=== PATIENT | male | born 1965 | race Caucasian/White ===

== ENCOUNTER 2019-01-19 15:48 | Inpatient (IN) | payer MEDICARE, OTHER, MEDICAID ==
[2019-01-19] MEDS ORDERED: Albuterol/Ipratropium 3.0-0.5 MG/3 ML Neb Soln NEB ONE (15:53)
[2019-01-19] MEDS ORDERED: Sodium Chloride 0.9% 1,000 ML IV ONE (15:54)
[2019-01-19] MEDS ORDERED: Albuterol/Ipratropium 3.0-0.5 MG/3 ML Neb Soln ONE (15:55)
--- NOTE | 2019-01-19 16:12 | EDM.PDOC ---
ED HPI GENERAL MEDICAL PROBLEM - General Chief Complaint: Respiratory Problem Stated Complaint: PATIENT HAS INFLUENZA Time Seen by Provider: 01/19/19 16:00 Source of Information: Reports: Patient History Limitations: Reports: No Limitations - History of Present Illness INITIAL COMMENTS - FREE TEXT/NARRATIVE: This 54 yo male patient reports to the ED with increased shortness of breath. The patient reports he was diagnosed with influenza A, but has been experiencing increased shortness of breath since that time. The patient reports he is currently taking Tamiflu, Zofran and cough medication, but he has continued to have problems. The patient reports he does have a nebulizer and was taking treatments yesterday, but did not take any treatments today. Duration: Day(s):, Constant, Getting Worse Location: Reports: Chest Quality: Reports: Other Severity: Moderate Improves with: Reports: None Worsens with: Reports: None Context: Reports: Other Associated Symptoms: Reports: No Other Symptoms - Related Data Allergies Allergy/AdvReac Type Severity Reaction Status Date / Time alcohol Allergy UNKNOWN Verified 01/19/19 16:10 codeine Allergy UNKNOWN Verified 01/19/19 16:10 lamotrigine [From Lamictal] Allergy UNKNOWN Verified 01/19/19 16:10 oxcarbazepine Allergy UNKNOWEN Verified 01/19/19 16:10 Penicillins Allergy UNKNOWN Verified 01/19/19 16:10 Home Meds: Home Meds ALPRAZolam [Alprazolam] 1 mg PO BID PRN 08/25/14 [History] Cholecalciferol (Vitamin D3) [D-2000] 2,000 unit PO DAILY 08/25/14 [History] Tiotropium [Spiriva Handihaler] 18 mcg INH DAILY 08/25/14 [History] Albuterol [Proventil Neb Soln] 3 ml INH BID 12/02/17 [History] Aspirin [Adult Low Dose Aspirin EC] 81 mg PO DAILY 12/02/17 [History] FLUoxetine HCl [Fluoxetine HCl] 60 mg PO DAILY 12/02/17 [History] Fluticasone/Salmeterol [Advair Hfa 230-21 Mcg Inhaler] 2 puff INH BID 12/02/17 [ History] Folic Acid 1 mg PO DAILY 12/02/17 [History] Isosorbide Mononitrate [Imdur] 30 mg PO DAILY 12/02/17 [History] Methocarbamol [Robaxin] 750 mg PO QID 12/02/17 [History] Omeprazole 20 mg PO DAILY 12/02/17 [History] Umeclidinium [place] [Incruse Ellipta] 1 puff INH DAILY 12/02/17 [History] amLODIPine/atorvaSTATin [Amlodipine-Atorvast 10-10 mg] 1 tab PO DAILY 12/02/17 [ History] Social & Family History - Tobacco Use Smoking Status *Q: Current Every Day Smoker Years of Tobacco use: 30 Packs/Tins Daily: 0.5 - Caffeine Use Caffeine Use: Reports: Soda - Recreational Drug Use Recreational Drug Use: No ED ROS GENERAL - Review of Systems Review Of Systems: ROS reveals no pertinent complaints other than HPI. ED EXAM, GENERAL - Physical Exam Exam: See Below Exam Limited By: No Limitations General Appearance: Alert, WD/WN, Moderate Distress Eye Exam: Bilateral Eye: EOMI, Normal Inspection, PERRL Ears: Normal External Exam, Normal Canal, Hearing Grossly Normal, Normal TMs Nose: Normal Inspection, Normal Mucosa, No Blood Throat/Mouth: Normal Inspection, Normal Lips, Normal Teeth, Normal Gums, Normal Oropharynx, Normal Voice, No Airway Compromise Head: Atraumatic, Normocephalic Neck: Normal Inspection, Supple, Non-Tender, Full Range of Motion Respiratory/Chest: Decreased Breath Sounds, Rhonchi Cardiovascular: Normal Peripheral Pulses, Regular Rate, Rhythm, No Edema, No Gallop, No JVD, No Murmur, No Rub GI/Abdominal: Normal Bowel Sounds, Soft, Non-Tender, No Organomegaly, No Distention, No Abnormal Bruit, No Mass (Male) Exam: Deferred Rectal (Males) Exam: Deferred Back Exam: Normal Inspection, Full Range of Motion, NT Extremities: Normal Inspection, Normal Range of Motion, Non-Tender, Normal Capillary Refill, No Pedal Edema Neurological: Alert, Oriented, CN II-XII Intact, Normal Cognition, Normal Gait, Normal Reflexes, No Motor/Sensory Deficits Psychiatric: Normal Affect, Normal Mood Skin Exam: Warm, Dry, Intact, Normal Color, No Rash Lymphatic: No Adenopathy Course - Vital Signs Last Recorded V/S: Last Vital Signs Temp 37.1 C 01/19/19 15:52 Pulse 87 01/19/19 15:52 Resp 28 H 01/19/19 15:52 BP 153/97 H 01/19/19 15:52 Pulse Ox 90 L 01/19/19 15:53 - Orders/Labs/Meds Orders: Active Orders 24 hr Category Date Time Status RT Aerosol Therapy [RC] ASDIRECTED Care 01/19/19 15:53 Ordered CULTURE BLOOD [BC] Stat Lab 01/19/19 15:54 Ordered CULTURE BLOOD [BC] Stat Lab 01/19/19 15:54 Ordered Azithromycin [Zithromax] 500 mg Med 01/19/19 16:52 Ordered Sodium Chloride 0.9% [Normal Saline] 250 ml IV ONETIME Sodium Chloride 0.9% [Normal Saline] 1,000 ml Med 01/19/19 15:54 Ordered IV .BOLUS Blood Culture x2 Reflex Set [OM.PC] Stat Oth 01/19/19 15:54 Ordered Medication Orders Sodium Chloride (Normal Saline) 1,000 mls @ 250 mls/hr IV .BOLUS ONE Stop: 01/19/19 19:53 Last Admin: 01/19/19 16:06 Dose: 250 mls/hr Azithromycin 500 mg/ Sodium (Chloride) 250 mls @ 250 mls/hr IV ONETIME ONE Stop: 01/19/19 17:51 Labs: Laboratory Tests 01/19/19 01/19/19 01/19/19 Range/Units 16:04 16:04 16:04 WBC 8.9 (5.0-10.0) 10^3/uL RBC 5.03 (4.6-6.2) 10^6/uL Hgb 15.2 (14.0-18.0) g/dL Hct 44.1 (40.0-54.0) % MCV 87.7 (80-100) fL MCH 30.2 (27.0-34.0) pg MCHC 34.5 (33.0-35.0) g/dL Plt Count 142 L (150-450) 10^3/uL Neut % (Auto) 75.9 H (42.2-75.2) % Lymph % (Auto) 14.8 L (20.5-50.1) % [place] % (Auto) 8.9 H (2-8) % Eos % (Auto) 0.2 L (1.0-3.0) % Baso % (Auto) 0.2 (0.0-1.0) % Add Manual Diff Yes Neutrophils % (Manual) 61 (42-75) % Lymphocytes % (Manual) 21 (20-50) % Monocytes % (Manual) 13 H (2-8) % Basophils % (Manual) 1 Metamyelocytes % 2 Myelocytes % 2 Atypical Lymphocytes Few Vacuolated Monocytes Few Platelet Estimate Decreased Sodium 139 (135-145) mmol/L Potassium 3.4 L (3.6-5.0) mmol/L Chloride 104 (101-111) mmol/L Carbon Dioxide 23.0 (21.0-31.0) mmol/L Anion Gap 15.4 BUN 14 (7-18) mg/dL Creatinine 0.7 (0.6-1.3) mg/dL Est Cr Clr Drug Dosing 123.12 mL/min Estimated GFR (MDRD) > 60 BUN/Creatinine Ratio 20.00 Glucose 101 (74-105) mg/dL Lactic Acid 1.1 (0.5-2.2) mmol/L Calcium 8.7 (8.4-10.2) mg/dl Total Bilirubin 0.9 (0.2-1.0) mg/dL AST 87 H (10-42) IU/L ALT 102 H (10-60) IU/L Alkaline Phosphatase 136 H (42-121) IU/L Total Protein 7.0 (6.7-8.2) g/dl Albumin 3.5 (3.2-5.5) g/dl Globulin 3.5 Albumin/Globulin Ratio 1.00 Meds: Medications Generic Name Dose Route Start Last Admin Trade Name Tricia PRN Reason Stop Dose Admin Sodium Chloride 1,000 mls @ 250 mls/hr 01/19/19 15:54 01/19/19 16:06 Normal Saline IV 01/19/19 19:53 250 mls/hr .BOLUS ONE Administration Azithromycin 500 mg/ Sodium 250 mls @ 250 mls/hr 01/19/19 16:52 Chloride IV 01/19/19 17:51 ONETIME ONE Discontinued Medications Generic Name Dose Route Start Last Admin Trade Name Freq PRN Reason Stop Dose Admin Albuterol/Ipratropium 3 ml 01/19/19 15:53 01/19/19 15:59 Duoneb 3.0-0.5 Mg/3 Ml NEB 01/19/19 15:54 3 ml ONETIME ONE Administration Albuterol/Ipratropium Confirm 01/19/19 15:55 01/19/19 15:59 Duoneb 3.0-0.5 Mg/3 Ml Administered 01/19/19 15:56 Not Given Dose 3 ml .ROUTE .STK-MED ONE Methylprednisolone Sodium Succinate 125 mg 01/19/19 16:46 01/19/19 16:54 Solu-Medrol IVPUSH 01/19/19 16:47 125 mg ONETIME ONE Administration Departure - Departure Time of Disposition: 16:54 Disposition: Admitted As Inpatient 65 Condition: Poor Clinical Impression: COPD exacerbation, Hypoxemia - Discharge Information *PRESCRIPTION DRUG MONITORING PROGRAM REVIEWED*: Not Applicable *COPY OF PRESCRIPTION DRUG MONITORING REPORT IN PATIENT SHAR: Not Applicable Care Plan Goals: Discussed the examination, lab and x-ray results with Dr. Mcallister. Dr. Mcallister accepted the patient for continued evaluation and management as an inpatient at [facility]. The patient was given a Duoneb treatment, IV SoluMedrol and IV Azithromycin prior to admission. - My Orders Last 24 Hours: My Active Orders 01/19/19 15:53 RT Aerosol Therapy [RC] ASDIRECTED 01/19/19 15:54 CULTURE BLOOD [BC] Stat CULTURE BLOOD [BC] Stat Sodium Chloride 0.9% [Normal Saline] 1,000 ml IV .BOLUS Blood Culture x2 Reflex Set [OM.PC] Stat 01/19/19 16:52 Azithromycin [Zithromax] 500 mg Sodium Chloride 0.9% [Normal Saline] 250 ml IV ONETIME - Assessment/Plan Last 24 Hours: My Active Orders 01/19/19 15:53 RT Aerosol Therapy [RC] ASDIRECTED 01/19/19 15:54 CULTURE BLOOD [BC] Stat CULTURE BLOOD [BC] Stat Sodium Chloride 0.9% [Normal Saline] 1,000 ml IV .BOLUS Blood Culture x2 Reflex Set [OM.PC] Stat 01/19/19 16:52 Azithromycin [Zithromax] 500 mg Sodium Chloride 0.9% [Normal Saline] 250 ml IV ONETIME
[2019-01-19 16:34] LABS: ANION GAP 15.4; CHLORIDE,CL 104 mmol/L (101-111); SODIUM,NA 139 mmol/L (135-145)
--- NOTE | 2019-01-19 16:45 | CR ---
Clinical history: 54-year-old male complaining of shortness of breath. Interpretation: Prominence of the ascending aorta (ectasia) with associated widened mediastinum unchanged since 12 September 2017. Normal cardiac silhouette without cephalization of vascular flow, signs of alveolar edema or dependent pleural effusion. No new lung mass, hilar lymphadenopathy or focal lobar pneumonia. No atelectasis/collapse. No pneumothorax. Chronic air trapping. Asthmatic? CONCLUSION: No acute new cardiopulmonary since August 2010 films.
[2019-01-19] MEDS ORDERED: methylPREDNISolone Sodium Succinate 125 MG/2 ML SDV IVPUSH ONE (16:46)
[2019-01-19] MEDS ORDERED: Azithromycin 500 MG in Sodium Chloride 0.9% 250 ML IV ONE (16:52)
[2019-01-19] MEDS ORDERED: Docusate Sodium 100 MG Cap PO PRN (17:39)
[2019-01-19] MEDS ORDERED: Magnesium Hydroxide 400 MG/5 ML Susp 30 ML Cup PO PRN (17:39)
--- NOTE | 2019-01-19 18:02 | PCM.HP ---
H&P History of Present Illness - General Date of Service: 01/19/19 Admit Problem/Dx: Admission Diagnosis/Problem Admission Diagnosis/Problem Acute respiratory failure with hypercapnia Source of Information: Patient History Limitations: Reports: No Limitations - History of Present Illness Initial Comments - Free Text/Narative: Seth is 54 y/o M with PMH of chronic tobacco abuse, COPD, HTN, HLD. He presented to the ER with worsening SOB. He said he was diagnosed with influenza A on Friday by his PCP. He was started on Tamiflu and dexamethasone. He completed Tamiflu today but do not feel well. He reports increasing SOB. SOB is worse with exertion and is associated with with wheezing. He has used he nebulizers at home with no relieve. He notes cough productive of minimal sputum. He has not had fever or chills. No chest pain, palpitations. In the ER he was hypoxic on RA, saturation was in the 70s. He improved to 92% with 3 L of oxygen via NC. Cxr was negative for infiltrate. Patient is being admitted to the hospital for further management. Onset of Symptoms: Reports: Gradual Duration of Symptoms: Reports: Day(s): Location: Reports: Chest Quality: Reports: Other (SOB) Severity: Severe Improves with: Reports: None Worsens with: Reports: None Associated Symptoms: Reports: No Other Symptoms - Related Data Allergies/Adverse Reactions: Allergies Allergy/AdvReac Type Severity Reaction Status Date / Time alcohol Allergy UNKNOWN Verified 01/19/19 16:10 codeine Allergy UNKNOWN Verified 01/19/19 16:10 fentanyl Allergy Cannot Verified 01/19/19 17:54 Remember lamotrigine [From Lamictal] Allergy UNKNOWN Verified 01/19/19 16:10 oxcarbazepine Allergy UNKNOWEN Verified 01/19/19 16:10 Penicillins Allergy UNKNOWN Verified 01/19/19 16:10 Home Medications: Home Meds ALPRAZolam [Alprazolam] 1 mg PO BID PRN 08/25/14 [History] Cholecalciferol (Vitamin D3) [D-2000] 2,000 unit PO DAILY 08/25/14 [History] Albuterol [Proventil Neb Soln] 3 ml INH BID 12/02/17 [History] Aspirin [Adult Low Dose Aspirin EC] 81 mg PO DAILY 12/02/17 [History] FLUoxetine HCl [Fluoxetine HCl] 60 mg PO DAILY 12/02/17 [History] Fluticasone/Salmeterol [Advair Hfa 230-21 Mcg Inhaler] 2 puff INH BID 12/02/17 [ History] Folic Acid 1 mg PO DAILY 12/02/17 [History] Omeprazole 20 mg PO DAILY 12/02/17 [History] Umeclidinium [place] [Incruse Ellipta] 1 puff INH DAILY 12/02/17 [History] amLODIPine/atorvaSTATin [Amlodipine-Atorvast 10-10 mg] 1 tab PO DAILY 12/02/17 [ History] ALPRAZolam [Alprazolam] 1 mg PO ASDIRECTED PRN 01/19/19 [History] Oseltamivir [Tamiflu] 75 mg PO BID 01/19/19 [History] atorvaSTATin [Lipitor] 10 mg PO BEDTIME 01/19/19 [History] methylPREDNISolone [Medrol] 4 mg PO ASDIRECTED 01/19/19 [History] Past Medical History HEENT History: Reports: Impaired Vision Respiratory History: Reports: COPD - Past Surgical History Musculoskeletal Surgical History: Reports: Shoulder Replacement, Other (See Below) Other Musculoskeletal Surgeries/Procedures:: back surgery Social & Family History - Tobacco Use Smoking Status *Q: Current Every Day Smoker Years of Tobacco use: 35 Packs/Tins Daily: 1 Tobacco Use Comment: Patient states he wants to quit. Second Hand Smoke Exposure: Yes - Caffeine Use Caffeine Use: Reports: Coffee, Soda - Alcohol Use Days Per Week of Alcohol Use: 2 Number of Drinks Per Day: 2 Total Drinks Per Week: 4 - Recreational Drug Use Recreational Drug Use: No H&P Review of Systems - Review of Systems: Review Of Systems: See Below General: Reports: No Symptoms HEENT: Reports: No Symptoms Pulmonary: Reports: Shortness of Breath, Wheezing, Pleuritic Chest Pain, Cough, Sputum Cardiovascular: Reports: No Symptoms Gastrointestinal: Reports: No Symptoms Genitourinary: Reports: No Symptoms Musculoskeletal: Reports: No Symptoms Skin: Reports: No Symptoms Psychiatric: Reports: No Symptoms Neurological: Reports: No Symptoms Hematologic/Lymphatic: Reports: No Symptoms Immunologic: Reports: No Symptoms Exam - Exam Exam: See Below - Vital Signs Vital Signs: Last Vital Signs Temp 98.8 F 01/19/19 17:34 Pulse 78 01/19/19 17:34 Resp 28 H 01/19/19 15:52 BP 139/90 01/19/19 17:34 Pulse Ox 91 L 01/19/19 17:34 Weight: 212 lb 6.4 oz - Exam Quality Assessment: Supplemental Oxygen, DVT Prophylaxis General: Alert, Oriented, 4 HEENT: PERRLA, Hearing Intact, Mucosa Moist & [place], Nares Patent, Normal Nasal Septum, Posterior Pharynx Clear, Conjunctiva Clear, EOMI, EACs Clear, TMs Clear Neck: Supple, Trachea Midline, 2 Lungs: Clear to Auscultation, Normal Respiratory Effort Cardiovascular: Regular Rate, Regular Rhythm GI/Abdominal Exam: Normal Bowel Sounds, Soft, Non-Tender, No Organomegaly, No Distention, No Abnormal Bruit, No Mass, Pelvis Stable (Male) Exam: No Hernia, Normal Inspection, Normal Prostate, Circumcised Rectal (Males) Exam: Normal Exam, Normal Rectal Tone, Prostate Normal Back Exam: Normal Inspection, Full Range of Motion, NT Extremities: Normal Inspection, Normal Range of Motion, Non-Tender, No Pedal Edema, Normal Capillary Refill Skin: Warm, Dry, Intact Neurological: Cranial Nerves Intact, Reflexes Equal Bilateral Neuro Extensive - Mental Status: Alert, Oriented x3, Normal Mood/Affect, Normal Cognition Neuro Extensive - Motor, Sensory, Reflexes: CN II-XII Intact, Normal Gait, Normal Reflexes Psychiatric: Alert, Normal Affect, Normal Mood - Patient Data Lab Results Last 24 hrs: Laboratory Results - last 24 hr 01/19/19 01/19/19 01/19/19 Range/Units 16:04 16:04 16:04 WBC 8.9 (5.0-10.0) 10^3/uL RBC 5.03 (4.6-6.2) 10^6/uL Hgb 15.2 (14.0-18.0) g/dL Hct 44.1 (40.0-54.0) % MCV 87.7 (80-100) fL MCH 30.2 (27.0-34.0) pg MCHC 34.5 (33.0-35.0) g/dL Plt Count 142 L (150-450) 10^3/uL Neut % (Auto) 75.9 H (42.2-75.2) % Lymph % (Auto) 14.8 L (20.5-50.1) % [place] % (Auto) 8.9 H (2-8) % Eos % (Auto) 0.2 L (1.0-3.0) % Baso % (Auto) 0.2 (0.0-1.0) % Add Manual Diff Yes Neutrophils % (Manual) 61 (42-75) % Lymphocytes % (Manual) 21 (20-50) % Monocytes % (Manual) 13 H (2-8) % Basophils % (Manual) 1 Metamyelocytes % 2 Myelocytes % 2 Atypical Lymphocytes Few Vacuolated Monocytes Few Platelet Estimate Decreased Sodium 139 (135-145) mmol/L Potassium 3.4 L (3.6-5.0) mmol/L Chloride 104 (101-111) mmol/L Carbon Dioxide 23.0 (21.0-31.0) mmol/L Anion Gap 15.4 BUN 14 (7-18) mg/dL Creatinine 0.7 (0.6-1.3) mg/dL Est Cr Clr Drug Dosing 123.12 mL/min Estimated GFR (MDRD) > 60 BUN/Creatinine Ratio 20.00 Glucose 101 (74-105) mg/dL Lactic Acid 1.1 (0.5-2.2) mmol/L Calcium 8.7 (8.4-10.2) mg/dl Total Bilirubin 0.9 (0.2-1.0) mg/dL AST 87 H (10-42) IU/L ALT 102 H (10-60) IU/L Alkaline Phosphatase 136 H (42-121) IU/L Total Protein 7.0 (6.7-8.2) g/dl Albumin 3.5 (3.2-5.5) g/dl Globulin 3.5 Albumin/Globulin Ratio 1.00 Result Diagrams: 01/19/19 16:04 01/19/19 16:04 - Problem List (1) Influenza A SNOMED Code(s): 080871301 ICD Code: J10.1 - FLU DUE TO OTH IDENT INFLUENZA VIRUS W OTH RESP MANIFEST Status: Acute Current Visit: Yes (2) HTN (hypertension) SNOMED Code(s): 49857276 ICD Code: I10 - ESSENTIAL (PRIMARY) HYPERTENSION Status: Acute Current Visit: Yes (3) Respiratory failure with hypoxia SNOMED Code(s): 07046933283725309 ICD Code: J96.91 - RESPIRATORY FAILURE, UNSPECIFIED WITH HYPOXIA Status: Acute Current Visit: Yes (4) COPD exacerbation SNOMED Code(s): 523925354 ICD Code: J44.1 - CHRONIC OBSTRUCTIVE PULMONARY DISEASE W (ACUTE) EXACERBATION Status: Acute Current Visit: No (5) Hypoxemia SNOMED Code(s): 265485024 ICD Code: R09.02 - HYPOXEMIA Status: Acute Current Visit: No Problem List Initiated/Reviewed/Updated: Yes Orders Last 24hrs: Active Orders 24 hr Category Date Time Status Patient Status [ADT] Routine ADT 01/19/19 17:39 Ordered Ambulate [RC] ASDIRECTED Care 01/19/19 17:39 Ordered Antiembolic Devices [RC] .Routine Care 01/19/19 17:43 Ordered Intake and Output [RC] QSHIFT Care 01/19/19 17:41 Ordered Notify Provider Vital Signs [RC] ASDIRECTED Care 01/19/19 17:41 Ordered Oxygen Therapy [RC] CONTINUOUS Care 01/19/19 17:41 Ordered Pulse Oximetry [RC] PRN Care 01/19/19 17:41 Ordered RT Aerosol Therapy [RC] ASDIRECTED Care 01/19/19 15:53 Active RT Aerosol Therapy [RC] ASDIRECTED Care 01/19/19 17:47 Ordered RT Aerosol Therapy [RC] ASDIRECTED Care 01/19/19 17:53 Ordered VTE/DVT Education [RC] PER UNIT ROUTINE Care 01/19/19 17:43 Ordered Vital Signs [RC] Q4H Care 01/19/19 17:39 Ordered Regular Diet [DIET] Diet 01/19/19 Dinner Ordered CULTURE BLOOD [BC] Stat Lab 01/19/19 16:04 Received CULTURE BLOOD [BC] Stat Lab 01/19/19 16:08 Received ALPRAZolam [Alprazolam] Med 01/19/19 17:44 Ordered 1 mg PO BID PRN Acetaminophen [Tylenol] Med 01/19/19 17:39 Ordered 650 mg PO Q4H PRN Albuterol [Proventil Neb Soln] Med 01/19/19 21:00 Ordered 2.5 mg INH BID Albuterol/Ipratropium [DuoNeb 3.0-0.5 MG/3 ML] Med 01/19/19 19:00 Ordered 3 ml NEB Q4HRRT Albuterol/Ipratropium [DuoNeb 3.0-0.5 MG/3 ML] Med 01/19/19 19:00 Ordered 3 ml NEB Q4HRRT Aspirin [Halfprin] Med 01/20/19 09:00 Ordered 81 mg PO DAILY Azithromycin [Zithromax] 500 mg Med 01/19/19 18:00 Ordered Sodium Chloride 0.9% [Normal Saline] 250 ml IV Q24H Cholecalciferol (Vitamin D3) [D3-2000] Med 01/20/19 09:00 Ordered 2,000 unit PO DAILY Docusate Sodium [Colace] Med 01/19/19 17:39 Ordered 100 mg PO DAILY PRN FLUoxetine HCl [Fluoxetine HCl] Med 01/20/19 09:00 Ordered 60 mg PO DAILY Fluticasone/Salmeterol [Advair Hfa 230-21 Mcg Inhaler] Med 01/19/19 21:00 Ordered 2 puff INH BID Folic Acid Med 01/20/19 09:00 Ordered 1 mg PO DAILY Heparin Sodium Med 01/19/19 17:45 Ordered 5,000 units SUBCUT Q12H Isosorbide Mononitrate [Imdur] Med 01/20/19 09:00 Ordered 30 mg PO DAILY Magnesium Hydroxide [Milk of Magnesia] Med 01/19/19 17:39 Ordered 30 ml PO BID PRN Methocarbamol Med 01/19/19 21:00 Ordered 750 mg PO QID Nicotine [Habitrol] Med 01/19/19 18:00 Ordered 14 mg TRDERM DAILY Omeprazole Med 01/20/19 09:00 Ordered 20 mg PO DAILY Remove Patch Med 01/20/19 09:00 Active 1 ea TRDERM DAILY Sodium Chloride 0.9% [Normal Saline] 1,000 ml Med 01/19/19 15:54 Active IV .BOLUS Tiotropium [Spiriva HandiHaler] Med 01/20/19 09:00 Ordered 18 mcg INH DAILY Umeclidinium [place] [Incruse Ellipta] Med 01/20/19 09:00 Ordered 1 puff INH DAILY amLODIPine/atorvaSTATin [Amlodipine-Atorvast 10-10 mg] Med 01/20/19 09:00 Ordered 1 tab PO DAILY methylPREDNISolone Sod Succ [Solu-MEDROL] Med 01/19/19 18:00 Ordered 40 mg IVPUSH Q8H Blood Culture x2 Reflex Set [OM.PC] Stat Oth 01/19/19 15:54 Ordered DVT/VTE Prophylaxis Reflex [OM.PC] Routine Oth 01/19/19 17:39 Ordered Resuscitation Status Routine Resus Stat 01/19/19 17:39 Ordered Medication Orders Acetaminophen (Tylenol) 650 mg PO Q4H PRN PRN Reason: Pain (mild 1-3 )/fever Albuterol (Proventil Neb Soln) 2.5 mg INH BIDRT [facility] Alprazolam (Xanax) 1 mg PO BID PRN PRN Reason: ANXIETY Amlodipine Besylate (Norvasc) 10 mg PO DAILY [facility] Aspirin (Halfprin) 81 mg PO DAILY [facility] Cholecalciferol (Vitamin D3) 2,000 units PO DAILY [facility] Docusate Sodium (Colace) 100 mg PO DAILY PRN PRN Reason: Constipation Fluoxetine HCl (Prozac) 60 mg PO DAILY [facility] Folic Acid (Folic Acid) 1 mg PO DAILY [facility] Heparin Sodium (Porcine) (Heparin Sodium) 5,000 units SUBCUT Q12H [facility] Sodium Chloride (Normal Saline) 1,000 mls @ 250 mls/hr IV .BOLUS ONE Stop: 01/19/19 19:53 Last Admin: 01/19/19 16:06 Dose: 250 mls/hr Isosorbide Mononitrate (Imdur) 30 mg PO DAILY [facility] Magnesium Hydroxide (Milk Of Magnesia) 30 ml PO BID PRN PRN Reason: Constipation Miscellaneous Information (Remove Patch) 1 ea TRDERM DAILY [facility] Nicotine (Habitrol) 14 mg TRDERM DAILY [facility] Non-Formulary Medication (Fluticasone/Salmeterol [Advair Hfa 230-21 Mcg Inhaler] ) 2 puff INH BID [facility] Non-Formulary Medication (Methocarbamol) 750 mg PO QID [facility] Non-Formulary Medication (Umeclidinium [place] [Incruse Ellipta]) 1 puff INH DAILY [facility] Omeprazole (Omeprazole) 20 mg PO ACBREAKFAST [facility] Tiotropium [place] (Spiriva Handihaler) 18 mcg INH DAILY [facility] Assessment/Plan Comment:: Acute hypoxic respiratory failure requiring supplemental oxygen This is due to COPD exacerbation Admit to general medical floors Monitor vitals Continue supplemental oxygen and wean off as needed RT to assess and treat COPD exacerbation due to Influenza A Duo-Nebs q4h Solu-medrol 40 mg q8h Continue Fluticasone /Salmeterol Azithromycin Completed Tamiflu today Incentive spirometry and Flutter valve HTN BP at goal Continue home medication Monitor BP closely HLD Continue home medication Anxiety/Depression Continue Fluoxetine Cardiac diet Full code
[2019-01-19] MEDS: Albuterol 0.083% 2.5 MG/3 ML Neb Soln INH SCH (18:39)
[2019-01-19] MEDS: Nicotine 14 MG/24 Hr Patch TRDERM SCH (18:56)
[2019-01-19] MEDS: Formoterol/Mometasone 200-5 MCG 8.8 GM Inhaler IH SCH (18:56)
[2019-01-19] MEDS: Potassium Chloride 10 MEQ Tab.ER PO SCH (18:57)
[2019-01-19] MEDS: Albuterol/Ipratropium 3.0-0.5 MG/3 ML Neb Soln NEB SCH ×2 (19:00→23:37)
[2019-01-19] MEDS ORDERED: Albuterol/Ipratropium 3.0-0.5 MG/3 ML Neb Soln NEB SCH (19:00)
[2019-01-19] MEDS ORDERED: METHOCARBAMOL 750 MG PO SCH (21:00)
[2019-01-19] MEDS: Omeprazole 20 MG Cap.CR PO SCH (21:45)
[2019-01-19] MEDS: Heparin Sodium 5,000 Units/ML Vial SUBCUT SCH (21:45)
[2019-01-19] MEDS: FLUoxetine 10 MG Cap PO SCH ×2 (21:45→21:48)
[2019-01-19] MEDS: methylPREDNISolone Sodium Succinate 40 MG/1 ML SDV IVPUSH SCH (21:46)
[2019-01-19] MEDS: ALPRAZolam 0.5 MG Tab PO PRN (21:46)
[2019-01-20] MEDS: Albuterol/Ipratropium 3.0-0.5 MG/3 ML Neb Soln NEB SCH ×6 (03:41→22:13)
[2019-01-20 06:19] LABS: ANION GAP 15.8; CHLORIDE,CL 100 mmol/L (101-111); SODIUM,NA 136 mmol/L (135-145)
[2019-01-20] MEDS: methylPREDNISolone Sodium Succinate 40 MG/1 ML SDV IVPUSH SCH ×3 (06:23→22:13)
[2019-01-20] MEDS: Acetaminophen 325 MG Tab PO PRN ×2 (07:53→19:33)
[2019-01-20] MEDS: Formoterol/Mometasone 200-5 MCG 8.8 GM Inhaler IH SCH ×2 (07:54→18:01)
[2019-01-20] MEDS: Albuterol 0.083% 2.5 MG/3 ML Neb Soln INH SCH (08:19)
[2019-01-20] MEDS: Potassium Chloride 10 MEQ Tab.ER PO SCH ×2 (08:20→18:01)
[2019-01-20] MEDS: Folic Acid 1 MG Tab PO SCH (08:20)
[2019-01-20] MEDS: amLODIPine 5 MG Tab PO SCH (08:21)
[2019-01-20] MEDS: atorvaSTATin 10 MG Tab PO SCH (08:21)
[2019-01-20] MEDS: Aspirin 81 MG Tab.EC PO SCH (08:21)
[2019-01-20] MEDS: Cholecalciferol (Vitamin D3) 1,000 Unit Tab PO SCH (08:22)
[2019-01-20] MEDS: FLUoxetine 10 MG Cap PO SCH (08:22)
[2019-01-20] MEDS: Heparin Sodium 5,000 Units/ML Vial SUBCUT SCH ×3 (08:23→20:46)
[2019-01-20] MEDS: ALPRAZolam 0.5 MG Tab PO PRN ×2 (08:23→21:02)
[2019-01-20] MEDS: Nicotine 14 MG/24 Hr Patch TRDERM SCH (08:24)
[2019-01-20] MEDS ORDERED: Isosorbide Mononitrate 30 MG Tab.ER PO SCH (09:00)
[2019-01-20] MEDS ORDERED: Non-Formulary Medication 1 Each (Umeclidinium Bromide [Incruse Ellipta] 1 PUFF) INH SCH (09:00)
[2019-01-20] MEDS ORDERED: Tiotropium Inhaler 18 MCG Inhalation Powder Cap Kit of 5 INH SCH (09:00)
[2019-01-20] MEDS ORDERED: Albuterol 0.083% 2.5 MG/3 ML Neb Soln INH PRN (10:04)
--- NOTE | 2019-01-20 10:27 | PCM.PN ---
- General Info Date of Service: 01/20/19 Subjective Update: still coughing Still SOB Still needing supplemental oxygen - Review of Systems General: Reports: Weakness Pulmonary: Reports: Shortness of Breath Cardiovascular: Reports: Dyspnea on Exertion Gastrointestinal: Reports: No Symptoms - Patient Data Vitals - Most Recent: Last Vital Signs Temp 37.2 C 01/20/19 07:00 Pulse 94 01/20/19 07:16 Resp 14 01/20/19 07:00 BP 136/92 H 01/20/19 08:21 Pulse Ox 94 L 01/20/19 07:00 Weight - Most Recent: 96.343 kg I&O - Last 24 Hours: Intake & Output 01/19/19 01/20/19 01/20/19 22:59 06:59 14:59 Intake Total 1255 350 Output Total 800 Balance 1255 -450 Lab Results Last 24 Hours: Laboratory Results - last 24 hr 01/19/19 01/19/19 01/19/19 Range/Units 16:04 16:04 16:04 WBC 8.9 (5.0-10.0) 10^3/uL RBC 5.03 (4.6-6.2) 10^6/uL Hgb 15.2 (14.0-18.0) g/dL Hct 44.1 (40.0-54.0) % MCV 87.7 (80-100) fL MCH 30.2 (27.0-34.0) pg MCHC 34.5 (33.0-35.0) g/dL Plt Count 142 L (150-450) 10^3/uL Neut % (Auto) 75.9 H (42.2-75.2) % Lymph % (Auto) 14.8 L (20.5-50.1) % [place] % (Auto) 8.9 H (2-8) % Eos % (Auto) 0.2 L (1.0-3.0) % Baso % (Auto) 0.2 (0.0-1.0) % Add Manual Diff Yes Neutrophils % (Manual) 61 (42-75) % Lymphocytes % (Manual) 21 (20-50) % Monocytes % (Manual) 13 H (2-8) % Basophils % (Manual) 1 Metamyelocytes % 2 Myelocytes % 2 Atypical Lymphocytes Few Vacuolated Monocytes Few Platelet Estimate Decreased Sodium 139 (135-145) mmol/L Potassium 3.4 L (3.6-5.0) mmol/L Chloride 104 (101-111) mmol/L Carbon Dioxide 23.0 (21.0-31.0) mmol/L Anion Gap 15.4 BUN 14 (7-18) mg/dL Creatinine 0.7 (0.6-1.3) mg/dL Est Cr Clr Drug Dosing 123.12 mL/min Estimated GFR (MDRD) > 60 BUN/Creatinine Ratio 20.00 Glucose 101 (74-105) mg/dL Lactic Acid 1.1 (0.5-2.2) mmol/L Calcium 8.7 (8.4-10.2) mg/dl Total Bilirubin 0.9 (0.2-1.0) mg/dL AST 87 H (10-42) IU/L ALT 102 H (10-60) IU/L Alkaline Phosphatase 136 H (42-121) IU/L Total Protein 7.0 (6.7-8.2) g/dl Albumin 3.5 (3.2-5.5) g/dl Globulin 3.5 Albumin/Globulin Ratio 1.00 01/20/19 01/20/19 Range/Units 05:50 05:50 WBC 7.0 (5.0-10.0) 10^3/uL RBC 4.93 (4.6-6.2) 10^6/uL Hgb 14.7 (14.0-18.0) g/dL Hct 43.2 (40.0-54.0) % MCV 87.6 (80-100) fL MCH 29.8 (27.0-34.0) pg MCHC 34.0 (33.0-35.0) g/dL Plt Count 136 L (150-450) 10^3/uL Neut % (Auto) 88.8 H (42.2-75.2) % Lymph % (Auto) 8.0 L (20.5-50.1) % [place] % (Auto) 3.1 (2-8) % Eos % (Auto) 0.0 L (1.0-3.0) % Baso % (Auto) 0.1 (0.0-1.0) % Add Manual Diff Yes Neutrophils % (Manual) 86 H (42-75) % Lymphocytes % (Manual) 10 L (20-50) % Monocytes % (Manual) 4 (2-8) % Basophils % (Manual) Metamyelocytes % Myelocytes % Atypical Lymphocytes Vacuolated Monocytes Platelet Estimate Sodium 136 (135-145) mmol/L Potassium 3.8 (3.6-5.0) mmol/L Chloride 100 L (101-111) mmol/L Carbon Dioxide 24.0 (21.0-31.0) mmol/L Anion Gap 15.8 BUN 9 (7-18) mg/dL Creatinine 0.7 (0.6-1.3) mg/dL Est Cr Clr Drug Dosing 123.12 mL/min Estimated GFR (MDRD) > 60 BUN/Creatinine Ratio Glucose 146 H (74-105) mg/dL Lactic Acid (0.5-2.2) mmol/L Calcium 8.8 (8.4-10.2) mg/dl Total Bilirubin (0.2-1.0) mg/dL AST (10-42) IU/L ALT (10-60) IU/L Alkaline Phosphatase (42-121) IU/L Total Protein (6.7-8.2) g/dl Albumin (3.2-5.5) g/dl Globulin Albumin/Globulin Ratio [place] Results Last 24 Hours: Microbiology 01/20/19 08:00 Gram Stain - Final Sputum - Expectorated Med Orders - Current: Current Medications Acetaminophen (Tylenol) 650 mg PO Q4H PRN PRN Reason: Pain (mild 1-3 )/fever Last Admin: 01/20/19 07:53 Dose: 650 mg Albuterol (Proventil Neb Soln) 2.5 mg INH BIDRT PRN PRN Reason: shortness of breath Albuterol/Ipratropium (Duoneb 3.0-0.5 Mg/3 Ml) 3 ml NEB Q4HRRT [facility] Last Admin: 01/20/19 07:16 Dose: 3 ml Alprazolam (Xanax) 1 mg PO BID PRN PRN Reason: ANXIETY Last Admin: 01/20/19 08:23 Dose: 1 mg Amlodipine Besylate (Norvasc) 10 mg PO DAILY [facility] Last Admin: 01/20/19 08:21 Dose: 10 mg Aspirin (Halfprin) 81 mg PO DAILY [facility] Last Admin: 01/20/19 08:21 Dose: 81 mg Atorvastatin Calcium (Lipitor) 10 mg PO DAILY [facility] Last Admin: 01/20/19 08:21 Dose: 10 mg Cholecalciferol (Vitamin D3) 2,000 units PO DAILY [facility] Last Admin: 01/20/19 08:22 Dose: 2,000 units Docusate Sodium (Colace) 100 mg PO DAILY PRN PRN Reason: Constipation Fluoxetine HCl (Prozac) 60 mg PO DAILY [facility] Last Admin: 01/20/19 08:22 Dose: 60 mg Folic Acid (Folic Acid) 1 mg PO DAILY [facility] Last Admin: 01/20/19 08:20 Dose: 1 mg Heparin Sodium (Porcine) (Heparin Sodium) 5,000 units SUBCUT Q12H [facility] Last Admin: 01/20/19 08:27 Dose: Not Given Azithromycin 500 mg/ Sodium (Chloride) 250 mls @ 250 mls/hr IV Q24H [facility] Magnesium Hydroxide (Milk Of Magnesia) 30 ml PO BID PRN PRN Reason: Constipation Methylprednisolone Sodium Succinate (Solu-Medrol) 40 mg IVPUSH Q8H [facility] Last Admin: 01/20/19 06:23 Dose: 40 mg Miscellaneous Information (Remove Patch) 1 ea TRDERM DAILY [facility] Last Admin: 01/20/19 08:26 Dose: Not Given Mometasone Furoate/Formoterol Fumar (Dulera 200-5 Mcg) 2 puff IH BIDRT [facility] Last Admin: 01/20/19 07:54 Dose: 2 puff Nicotine (Habitrol) 14 mg TRDERM DAILY [facility] Last Admin: 01/20/19 08:24 Dose: Not Given Omeprazole (Omeprazole) 20 mg PO BEDTIME [facility] Last Admin: 01/19/19 21:45 Dose: 20 mg Potassium Chloride (Klor-Con 10) 20 meq PO BIDMEALS [facility] Last Admin: 01/20/19 08:20 Dose: 20 meq Discontinued Medications Albuterol (Proventil Neb Soln) 2.5 mg INH BIDRT [facility] Last Admin: 01/20/19 08:19 Dose: Not Given Albuterol/Ipratropium (Duoneb 3.0-0.5 Mg/3 Ml) 3 ml NEB ONETIME ONE Stop: 01/19/19 15:54 Last Admin: 01/19/19 15:59 Dose: 3 ml Albuterol/Ipratropium (Duoneb 3.0-0.5 Mg/3 Ml) Confirm Administered Dose 3 ml .ROUTE .STK-MED ONE Stop: 01/19/19 15:56 Last Admin: 01/19/19 15:59 Dose: Not Given Fluoxetine HCl (Prozac) 60 mg PO BEDTIME [facility] Last Admin: 01/19/19 21:48 Dose: Not Given Sodium Chloride (Normal Saline) 1,000 mls @ 250 mls/hr IV .BOLUS ONE Stop: 01/19/19 19:53 Last Admin: 01/19/19 16:06 Dose: 250 mls/hr Azithromycin 500 mg/ Sodium (Chloride) 250 mls @ 250 mls/hr IV ONETIME ONE Stop: 01/19/19 17:51 Last Infusion: 01/19/19 19:21 Dose: Infused Isosorbide Mononitrate (Imdur) 30 mg PO DAILY [facility] Methylprednisolone Sodium Succinate (Solu-Medrol) 125 mg IVPUSH ONETIME ONE Stop: 01/19/19 16:47 Last Admin: 01/19/19 16:54 Dose: 125 mg Non-Formulary Medication (Methocarbamol) 750 mg PO QID [facility] Non-Formulary Medication (Umeclidinium Ray [Incruse Ellipta]) 1 puff INH DAILY [facility] Tiotropium Ray (Spiriva Handihaler) 18 mcg INH DAILY [facility] - Exam Quality Assessment: Supplemental Oxygen General: Alert, Oriented, Cooperative Neck: Supple Lungs: Decreased Breath Sounds, Rhonchi Extremities: Normal Inspection - Problem List Review Problem List Initiated/Reviewed/Updated: Yes - My Orders Last 24 Hours: My Active Orders 01/20/19 10:03 Communication Order [RC] ROUTINE 01/20/19 10:04 Albuterol [Proventil Neb Soln] 2.5 mg INH BIDRT PRN 01/20/19 Lunch Regular Diet [DIET] - Plan Plan:: #Acute hypoxic respiratory failure requiring supplemental oxygen This is due to COPD exacerbation Continue duoneb every 4 hours Change albuterol to prn IV solumedrol #COPD exacerbation due to Influenza A Duo-Nebs q4h Solu-medrol 40 mg q8h Continue Fluticasone /Salmeterol Azithromycin Completed Tamiflu today Incentive spirometry and Flutter valve HTN BP at goal Continue home medication Monitor BP closely HLD Continue home medication Anxiety/Depression Continue Fluoxetine Cardiac diet Full code
[2019-01-20] MEDS: Sodium Chloride 0.9% 10 ML Syringe FLUSH PRN ×3 (14:06→22:13)
[2019-01-20] MEDS ORDERED: Azithromycin 500 MG in Sodium Chloride 0.9% 250 ML IV SCH (16:00)
[2019-01-20] MEDS ORDERED: traZODone 50 MG Tab PO PRN (20:00)
[2019-01-20] MEDS: Omeprazole 20 MG Cap.CR PO SCH (20:56)
[2019-01-21] MEDS: Albuterol/Ipratropium 3.0-0.5 MG/3 ML Neb Soln NEB SCH ×3 (02:54→10:45)
[2019-01-21] MEDS: ALPRAZolam 0.5 MG Tab PO PRN (04:52)
[2019-01-21] MEDS: Sodium Chloride 0.9% 10 ML Syringe FLUSH PRN (05:17)
[2019-01-21] MEDS: methylPREDNISolone Sodium Succinate 40 MG/1 ML SDV IVPUSH SCH ×2 (05:17→13:46)
[2019-01-21] MEDS: Formoterol/Mometasone 200-5 MCG 8.8 GM Inhaler IH SCH (09:20)
[2019-01-21] MEDS: Cholecalciferol (Vitamin D3) 1,000 Unit Tab PO SCH (09:20)
[2019-01-21] MEDS: Folic Acid 1 MG Tab PO SCH (09:20)
[2019-01-21] MEDS: atorvaSTATin 10 MG Tab PO SCH (09:20)
[2019-01-21] MEDS: Nicotine 14 MG/24 Hr Patch TRDERM SCH (09:21)
[2019-01-21] MEDS: Potassium Chloride 10 MEQ Tab.ER PO SCH (09:21)
[2019-01-21] MEDS: Heparin Sodium 5,000 Units/ML Vial SUBCUT SCH (09:21)
[2019-01-21] MEDS: Aspirin 81 MG Tab.EC PO SCH (09:21)
[2019-01-21] MEDS: FLUoxetine 10 MG Cap PO SCH (09:22)
[2019-01-21] MEDS: amLODIPine 5 MG Tab PO SCH (09:22)
--- NOTE | 2019-01-21 11:59 | PCM.DCSUM1 ---
Discharge Summary - Hospital Course Free Text/Narrative:: Seth is a 54 y.o male with medical history significant for chronic tobacco abuse, COPD, HTN, HLP, and recent diagnosis of influenza A with completion of tamiflu who was admitted for acute COPD exacerbation and acute respiratory failure with hypoxia. He was treated with IV steroids and nebulized/inhaled treatments. He was weaned off O2 and was saturating at 90% on room air. However , O2 saturation was 84% with activity on walking desaturation test performed on 01/21/2019. Per respiratory therapist recommendation, patient will need 2L of O2 via nasal cannula with activity to maintain saturations between 88-92%. He was discharged home to continue home O2 therapy for acute respiratory failure with hypoxia. Patient is ambulatory at home so will benefit from portable oxygen. He is to follow up with his PCP. He was offered nicotine replacement therapy but he decline. However, stated that will not be smoking again. HPI Initial Comments: Seth is 54 y/o M with PMH of chronic tobacco abuse, COPD, HTN, HLD. He presented to the ER with worsening SOB. He said he was diagnosed with influenza A on Friday by his PCP. He was started on Tamiflu and dexamethasone. He completed Tamiflu today but do not feel well. He reports increasing SOB. SOB is worse with exertion and is associated with with wheezing. He has used he nebulizers at home with no relieve. He notes cough productive of minimal sputum. He has not had fever or chills. No chest pain, palpitations. In the ER he was hypoxic on RA, saturation was in the 70s. He improved to 92% with 3 L of oxygen via NC. Cxr was negative for infiltrate. Patient is being admitted to the hospital for further management. Onset of Symptoms: Reports: Gradual Duration of Symptoms: Reports: Day(s): Location: Reports: Chest Quality: Reports: Other (SOB) Severity: Severe Improves with: Reports: None Worsens with: Reports: None Associated Symptoms: Reports: No Other Symptoms Diagnosis: Stroke: No - Discharge Data Discharge Date: 01/21/19 Discharge Disposition: Home, Self-Care 01 Condition: Good - Discharge Diagnosis/Problem(s) (1) HTN (hypertension) SNOMED Code(s): 74834618 ICD Code: I10 - ESSENTIAL (PRIMARY) HYPERTENSION Status: Acute Current Visit: Yes (2) Influenza A SNOMED Code(s): 400012321 ICD Code: J10.1 - FLU DUE TO OTH IDENT INFLUENZA VIRUS W OTH RESP MANIFEST Status: Acute Current Visit: Yes (3) Respiratory failure with hypoxia SNOMED Code(s): 70781211779529124 ICD Code: J96.91 - RESPIRATORY FAILURE, UNSPECIFIED WITH HYPOXIA Status: Acute Current Visit: Yes (4) COPD exacerbation SNOMED Code(s): 686457020 ICD Code: J44.1 - CHRONIC OBSTRUCTIVE PULMONARY DISEASE W (ACUTE) EXACERBATION Status: Acute Current Visit: Yes - Patient Instructions Diet: Regular Diet as Tolerated Fluid Restriction: 2000 mL Activity: As Tolerated Driving: May Drive Today Showering/Bathing: May Shower - Discharge Plan *PRESCRIPTION DRUG MONITORING PROGRAM REVIEWED*: Not Applicable *COPY OF PRESCRIPTION DRUG MONITORING REPORT IN PATIENT SHAR: Not Applicable Prescriptions/Med Rec: atorvaSTATin [Lipitor] 10 mg PO DAILY #30 tablet Home Medications: Home Meds ALPRAZolam [Alprazolam] 1 mg PO BID PRN 08/25/14 [History] Cholecalciferol (Vitamin D3) [D3-2000] 2,000 unit PO DAILY 08/25/14 [History] Albuterol [Proventil Neb Soln] 3 ml INH BID 12/02/17 [History] Aspirin [Adult Low Dose Aspirin EC] 81 mg PO DAILY 12/02/17 [History] FLUoxetine HCl [Fluoxetine HCl] 60 mg PO DAILY 12/02/17 [History] Fluticasone/Salmeterol [Advair Hfa 230-21 Mcg Inhaler] 2 puff INH BID 12/02/17 [ History] Folic Acid 1 mg PO DAILY 12/02/17 [History] Omeprazole 20 mg PO DAILY 12/02/17 [History] Umeclidinium [place] [Incruse Ellipta] 1 puff INH DAILY 12/02/17 [History] ALPRAZolam [Alprazolam] 1 mg PO ASDIRECTED PRN 01/19/19 [History] atorvaSTATin [Lipitor] 10 mg PO BEDTIME 01/19/19 [History] methylPREDNISolone [Medrol] 4 mg PO ASDIRECTED 01/19/19 [History] Codeine/Promethazine HCl [Promethazine-Codeine Syrup] 5 ml PO DAILY PRN [History] Diclofenac Sodium [Diclofenac Sodium ER] 75 mg DAILY 01/20/19 [History] amLODIPine [Norvasc] 10 mg PO DAILY 01/20/19 [History] atorvaSTATin [Lipitor] 10 mg PO DAILY #30 tablet 01/21/19 [Rx] Oxygen Therapy Mode: Nasal Cannula Oxygen Flow Rate (L/min): 2 (With activity) Patient Handouts: Chronic Obstructive Pulmonary Disease Exacerbation, Easy-to- Read, Influenza, Adult, [id number], Atorvastatin tablets, Acute Respiratory Failure, Adult - Discharge Summary/Plan Comment DC Time >30 min.: Yes - General Info Date of Service: 01/21/19 Admission Dx/Problem (Free Text: Admission Diagnosis/Problem Admission Diagnosis/Problem Acute respiratory failure with hypercapnia Subjective Update: No acute events. Reports that cough is improved. Denies shortness of breath, fevers, chills, chest pain, or any acute symptoms. - Review of Systems General: Reports: No Symptoms HEENT: Reports: No Symptoms Pulmonary: Reports: No Symptoms Cardiovascular: Reports: No Symptoms Gastrointestinal: Reports: No Symptoms Genitourinary: Reports: No Symptoms Musculoskeletal: Reports: No Symptoms Skin: Reports: No Symptoms Neurological: Reports: No Symptoms Psychiatric: Reports: No Symptoms - Patient Data Vitals - Most Recent: Last Vital Signs Temp 98.2 F 01/21/19 07:00 Pulse 78 01/21/19 07:00 Resp 20 01/21/19 07:00 BP 142/87 H 01/21/19 09:22 Pulse Ox 91 L 01/21/19 10:46 Weight - Most Recent: 212 lb 6.4 oz I&O - Last 24 hours: Intake & Output 01/20/19 01/21/19 01/21/19 22:59 06:59 14:59 Intake Total 2190 400 560 Balance 2190 400 560 NICHOLAS Results - Last 24 hrs: Microbiology 01/19/19 16:08 Aerobic Blood Culture - Preliminary Blood - Venous - Lab Draw NO GROWTH AFTER 1 DAY Anaerobic Blood Culture - Preliminary NO GROWTH AFTER 1 DAY 01/19/19 16:04 Aerobic Blood Culture - Preliminary Blood - Venous NO GROWTH AFTER 1 DAY Anaerobic Blood Culture - Preliminary NO GROWTH AFTER 1 DAY 01/20/19 08:00 Gram Stain - Final Sputum - Expectorated Med Orders - Current: Current Medications Acetaminophen (Tylenol) 650 mg PO Q4H PRN PRN Reason: Pain (mild 1-3 )/fever Last Admin: 01/20/19 19:33 Dose: 650 mg Albuterol (Proventil Neb Soln) 2.5 mg INH BIDRT PRN PRN Reason: shortness of breath Albuterol/Ipratropium (Duoneb 3.0-0.5 Mg/3 Ml) 3 ml NEB Q4HRRT [facility] Last Admin: 01/21/19 10:45 Dose: 3 ml Alprazolam (Xanax) 1 mg PO BID PRN PRN Reason: ANXIETY Last Admin: 01/21/19 04:52 Dose: 1 mg Amlodipine Besylate (Norvasc) 10 mg PO DAILY [facility] Last Admin: 01/21/19 09:22 Dose: 10 mg Aspirin (Halfprin) 81 mg PO DAILY [facility] Last Admin: 01/21/19 09:21 Dose: 81 mg Atorvastatin Calcium (Lipitor) 10 mg PO DAILY [facility] Last Admin: 01/21/19 09:20 Dose: 10 mg Cholecalciferol (Vitamin D3) 2,000 units PO DAILY [facility] Last Admin: 01/21/19 09:20 Dose: 2,000 units Docusate Sodium (Colace) 100 mg PO DAILY PRN PRN Reason: Constipation Fluoxetine HCl (Prozac) 60 mg PO DAILY [facility] Last Admin: 01/21/19 09:22 Dose: 60 mg Folic Acid (Folic Acid) 1 mg PO DAILY [facility] Last Admin: 01/21/19 09:20 Dose: 1 mg Heparin Sodium (Porcine) (Heparin Sodium) 5,000 units SUBCUT Q12H [facility] Last Admin: 01/21/19 09:21 Dose: Not Given Azithromycin 500 mg/ Sodium (Chloride) 250 mls @ 250 mls/hr IV Q24H [facility] Last Infusion: 01/20/19 17:00 Dose: Infused Magnesium Hydroxide (Milk Of Magnesia) 30 ml PO BID PRN PRN Reason: Constipation Methylprednisolone Sodium Succinate (Solu-Medrol) 40 mg IVPUSH Q8H [facility] Last Admin: 01/21/19 05:17 Dose: 40 mg Miscellaneous Information (Remove Patch) 1 ea TRDERM DAILY [facility] Last Admin: 01/21/19 09:22 Dose: Not Given Mometasone Furoate/Formoterol Fumar (Dulera 200-5 Mcg) 2 puff IH BIDRT [facility] Last Admin: 01/21/19 09:20 Dose: 2 puff Nicotine (Habitrol) 14 mg TRDERM DAILY [facility] Last Admin: 01/21/19 09:21 Dose: Not Given Omeprazole (Omeprazole) 20 mg PO BEDTIME [facility] Last Admin: 01/20/19 20:56 Dose: 20 mg Potassium Chloride (Klor-Con 10) 20 meq PO BIDMEALS [facility] Last Admin: 01/21/19 09:21 Dose: 20 meq Sodium Chloride (Saline Flush) 10 ml FLUSH ASDIRECTED PRN PRN Reason: Keep Vein Open Last Admin: 01/21/19 05:17 Dose: 10 ml Trazodone HCl (Trazodone) 50 mg PO BEDTIME PRN PRN Reason: Insomnia Discontinued Medications Albuterol (Proventil Neb Soln) 2.5 mg INH BIDRT [facility] Last Admin: 01/20/19 08:19 Dose: Not Given Albuterol/Ipratropium (Duoneb 3.0-0.5 Mg/3 Ml) 3 ml NEB ONETIME ONE Stop: 01/19/19 15:54 Last Admin: 01/19/19 15:59 Dose: 3 ml Albuterol/Ipratropium (Duoneb 3.0-0.5 Mg/3 Ml) Confirm Administered Dose 3 ml .ROUTE .STK-MED ONE Stop: 01/19/19 15:56 Last Admin: 01/19/19 15:59 Dose: Not Given Fluoxetine HCl (Prozac) 60 mg PO BEDTIME [facility] Last Admin: 01/19/19 21:48 Dose: Not Given Sodium Chloride (Normal Saline) 1,000 mls @ 250 mls/hr IV .BOLUS ONE Stop: 01/19/19 19:53 Last Admin: 01/19/19 16:06 Dose: 250 mls/hr Azithromycin 500 mg/ Sodium (Chloride) 250 mls @ 250 mls/hr IV ONETIME ONE Stop: 01/19/19 17:51 Last Infusion: 01/19/19 19:21 Dose: Infused Isosorbide Mononitrate (Imdur) 30 mg PO DAILY [facility] Methylprednisolone Sodium Succinate (Solu-Medrol) 125 mg IVPUSH ONETIME ONE Stop: 01/19/19 16:47 Last Admin: 01/19/19 16:54 Dose: 125 mg Non-Formulary Medication (Methocarbamol) 750 mg PO QID [facility] Non-Formulary Medication (Umeclidinium [place] [Incruse Ellipta]) 1 puff INH DAILY [facility] Tiotropium [place] (Spiriva Handihaler) 18 mcg INH DAILY [facility] - Exam General: Reports: Alert, Oriented, Cooperative, No Acute Distress HEENT: Reports: Pupils Equal, Pupils Reactive Neck: Reports: Supple Lungs: Reports: Clear to Auscultation, Normal Respiratory Effort Cardiovascular: Reports: Regular Rate, Regular Rhythm GI/Abdominal Exam: Normal Bowel Sounds, Soft, Non-Tender, No Distention, No Abnormal Bruit Extremities: Normal Inspection, Normal Range of Motion, Non-Tender, No Pedal Edema, Normal Capillary Refill Skin: Reports: Warm, Dry, Intact Neurological: Reports: Strength Equal Bilateral Psy/Mental Status: Reports: Alert, Normal Affect, Normal Mood
[2019-01-21 12:09] VITALS: BP 149/86
== END 2019-01-21 14:38 | disposition home or self-care (01) | DRG 189 ==
LOC: DL.ED 15:48 → UNDOADMIN 17:33 → DL.MS 17:33
PROVIDERS: ADMIT Student in an Organized Health Care Education/Training Program; ATTEND Internal Medicine
DX: J96.01 Acute respiratory failure with hypoxia (principal); J44.1 Chronic obstructive pulmonary disease with (acute) exacerbation; J10.1 Influenza due to other identified influenza virus with other respiratory manifestations; I10 Essential (primary) hypertension; E78.5 Hyperlipidemia, unspecified; H54.7 Unspecified visual loss; Z96.619 Presence of unspecified artificial shoulder joint; F17.210 Nicotine dependence, cigarettes, uncomplicated; F32.9 Major depressive disorder, single episode, unspecified; F41.9 Anxiety disorder, unspecified; Z88.0 Allergy status to penicillin; Z88.8 Allergy status to other drugs, medicaments and biological substances; Z79.82 Long term (current) use of aspirin; Z79.899 Other long term (current) drug therapy
CPT/HCPCS: 36415; 71046; 80048; 80053; 83605; 85025; 87040; 87070; 87205; 94618; 94640; 94667; 96361; 96374; 96375; 99285-25; A9270-GY; J0456; J1644; J2920; J2930; J7030; J7050; J7620-GY

== ENCOUNTER 2019-11-13 15:45 | Observation (INO) | payer MEDICARE, OTHER ==
[2019-11-13] MEDS: Sodium Chloride 0.9% 10 ML Syringe FLUSH PRN (16:18)
[2019-11-13] MEDS ORDERED: cloNIDine 0.1 MG Tab PO ONE (16:53)
[2019-11-13 17:13] LABS: ANION GAP 12.7; CHLORIDE,CL 102 mmol/L (101-111); SODIUM,NA 134 mmol/L (135-145)
[2019-11-13] MEDS ORDERED: Labetalol 100 MG/20 ML MDV IVPUSH ONE (18:00)
[2019-11-13] MEDS ORDERED: Lisinopril 20 MG Tab PO ONE (18:25)
[2019-11-13] MEDS ORDERED: Albuterol 0.083% 2.5 MG/3 ML Neb Soln NEB PRN (19:40)
[2019-11-13] MEDS ORDERED: ALPRAZolam 0.5 MG Tab PO ONE (19:43)
[2019-11-13] MEDS ORDERED: Ibuprofen 600 MG Tab PO ONE (20:02)
[2019-11-14] MEDS ORDERED: cloNIDine 0.1 MG Tab PO PRN (04:28)
[2019-11-14] MEDS ORDERED: Acetaminophen/oxyCODONE 325-5 MG Tab PO PRN (07:36)
[2019-11-14] MEDS ORDERED: Acetaminophen 325 MG Tab PO PRN (07:36)
[2019-11-14] MEDS ORDERED: Docusate Sodium 100 MG Cap PO PRN (07:36)
[2019-11-14] MEDS ORDERED: Lisinopril 20 MG Tab PO SCH (09:00)
[2019-11-14] MEDS: FLUoxetine 10 MG Cap PO SCH (09:55)
[2019-11-14] MEDS: Omeprazole 20 MG Cap.CR PO SCH (09:56)
[2019-11-14] MEDS: Nicotine 7 MG/24 Hr Patch TRDERM SCH (09:57)
[2019-11-14] MEDS: cloNIDine 0.1 MG Tab PO SCH ×3 (09:57→23:01)
[2019-11-14] MEDS: Enoxaparin 40 MG/0.4 ML Syringe SUBCUT SCH (09:58)
[2019-11-14] MEDS: Lisinopril 10 MG Tab PO SCH (10:16)
[2019-11-14] MEDS: amLODIPine 5 MG Tab PO SCH (10:16)
[2019-11-14] MEDS: Albuterol 0.083% 2.5 MG/3 ML Neb Soln NEB PRN ×2 (10:18→23:05)
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
[2019-11-14] MEDS: ALPRAZolam 0.5 MG Tab PO SCH ×2 (11:25→23:00)
[2019-11-14] MEDS: Sodium Chloride 0.9% 10 ML Syringe FLUSH PRN (23:07)
[2019-11-15] MEDS: Omeprazole 20 MG Cap.CR PO SCH (05:44)
[2019-11-15 07:41] VITALS: BP 133/86
[2019-11-15] MEDS: cloNIDine 0.1 MG Tab PO SCH (07:41)
[2019-11-15 08:16] VITALS: PULSE 68
[2019-11-15] MEDS: ALPRAZolam 0.5 MG Tab PO SCH (09:06)
[2019-11-15] MEDS: amLODIPine 5 MG Tab PO SCH (09:07)
[2019-11-15] MEDS: FLUoxetine 10 MG Cap PO SCH (09:07)
[2019-11-15] MEDS: Lisinopril 10 MG Tab PO SCH (09:07)
[2019-11-15] MEDS: Enoxaparin 40 MG/0.4 ML Syringe SUBCUT SCH (09:08)
[2019-11-15] MEDS: Nicotine 7 MG/24 Hr Patch TRDERM SCH (09:08)
--- NOTE | 2019-11-15 11:15 | DISCH ---
FINAL DIAGNOSES: 1. Uncontrolled hypertension. 2. Chronic obstructive pulmonary disease. 3. Anxiety. 4. Dyslipidemia. 5. Tobacco habituation. BRIEF HISTORY OF PRESENT ILLNESS: Please see H and P. PERTINENT LABS, X-RAY, AND OTHER TESTS: See H and P. HOSPITAL COURSE: The patient was admitted to observation and the patient was placed on amlodipine 10 mg a day and clonidine 0.1 mg every 8 hours and lisinopril 10 mg a day. The patient did well with above regimen. His blood pressure improved and remained within normal limits and the patient was subsequently discharged. CONDITION ON DISCHARGE: Improved. We will continue with his current regimen and he will be seeing Terrance Vines tomorrow as scheduled. [facility] /[id number]
--- NOTE | 2019-11-15 11:33 | PN ---
DATE: 11/15/2019 SUBJECTIVE: The patient's blood pressure has improved with amlodipine 10 mg daily and clonidine 0.1 mg every 8 hours as well as lisinopril 10 mg a day. The patient is doing well and he is ready to go home. He denies any headache, chest pain, shortness of breath, nor any other complaints. OBJECTIVE: Vital Signs: Blood pressure is 133/86, pulse of 68, respirations 20, temperature of 97.7, saturation is 94% on room air. Heart: Regular rate and rhythm. Normal S1 and S2. No gallops. No rubs. Lungs: Equal bilaterally. No crackles. No wheezing. Abdomen: Soft, nontender. Bowel sounds positive. Extremities: Negative for any pedal edema. No calf tenderness. PLAN: We will discharge the patient home today and he is going to follow up with Merlin Rodriguez tomorrow as scheduled. [facility] /[id number]
== END 2019-11-15 11:15 | disposition home or self-care (01) ==
LOC: DL.ED 15:45 → DL.MS 11-14 06:31 → DL.ED 11-14 06:43 → DL.MS 11-14 06:52 → UNDOADMOB 11-14 06:52
PROVIDERS: ADMIT Internal Medicine; ATTEND Internal Medicine
DX: I10 Essential (primary) hypertension (principal); J44.9 Chronic obstructive pulmonary disease, unspecified; E78.5 Hyperlipidemia, unspecified; F41.9 Anxiety disorder, unspecified; F17.210 Nicotine dependence, cigarettes, uncomplicated; Z79.82 Long term (current) use of aspirin; Z79.51 Long term (current) use of inhaled steroids; Z79.899 Other long term (current) drug therapy; Z88.5 Allergy status to narcotic agent; Z88.8 Allergy status to other drugs, medicaments and biological substances; Z88.0 Allergy status to penicillin
CPT/HCPCS: 36415; 80053; 84484; 85025; 93005; 94640; 96374; 99284; A9270; J1650; J3490; 96372; G0378; J7613-GY

== ENCOUNTER 2024-02-26 06:29 | Inpatient (IN) | payer MEDICARE, OTHER ==
[2024-02-26] MEDS: Albuterol/Ipratropium 3.0-0.5 MG/3 ML Neb Soln NEB ONE (06:37)
[2024-02-26 06:42] LABS: BASOPHILS PERCENT AUTO 0.2 % (0.0-1.0); EOSINOPHILS PERCENT AUTO 0.1 % (1.0-3.0); HEMATOCRIT 46.7 % (40.0-54.0); HEMOGLOBIN 16.2 g/dL (14.0-18.0); LYMPHOCYTES PERCENT AUTO 7.1 % (20.5-50.1); MEAN CORPUSCULAR HEMOGLOBIN 29.7 pg (27.0-34.0); MEAN CORPUSCULAR HGB CONC 34.7 g/dL (33.0-35.0); MEAN CORPUSCULAR VOLUME 85.5 fL (80-100); MONOCYTES PERCENT AUTO 6.8 % (2-8); NEUTROPHILS PERCENT AUTO 85.8 % (42.2-75.2); PLATELET COUNT,PLT 142 10^3/uL (150-450); RED BLOOD CELL COUNT 5.46 10^6/uL (4.6-6.2)
[2024-02-26 07:04] LABS: A/G RATIO 1.1; ALBUMIN 3.7 g/dL (3.4-5.0); ANION GAP 17.5 mEq/L (7-13); BILIRUBIN TOTAL 1.5 mg/dL (0.2-1.0); BUN/CREATININE RATIO 8.9 (No establ ref range); C-REACTIVE PROTEIN 0.93 ng/dL (<=0.50); CALCIUM 8.3 mg/dL (8.5-10.1); CREATININE 0.9 mg/dL (0.70-1.30); EST CRCL DRUG DOSING (CG) 90.12 mL/min; INR 1.3 (0.9-1.2); LACTIC ACID 1.7 mmol/L (0.4-2.0); MAGNESIUM 1.3 mg/dL (1.8-2.4); POTASSIUM,K 3.5 mmol/L (3.5-5.1); PROTEIN TOTAL,TP 7.2 g/dL (6.4-8.2); PROTHROMBIN TIME 13.6 SEC (9.0-12.0); PTT,PARTIAL THROMBOPLSTIN TIME 24.7 SEC (22.0-34.0)
[2024-02-26 07:32] LABS: CORONAVIRUS COVID-19 NAA NEGATIVE (NEGATIVE); INFLUENZA A NAA NEGATIVE (NEGATIVE); INFLUENZA B NAA NEGATIVE (NEGATIVE); RESPIRATORY SYNCYTIAL VIR NAA NEGATIVE (NEGATIVE)
[2024-02-26] MEDS: methylPREDNISolone Sodium Succinate 125 MG/2 ML SDV IVPUSH ONE (07:33)
[2024-02-26] MEDS: Cefepime 2 GM Vial IVPUSH ONE (07:33)
[2024-02-26] MEDS: diphenhydrAMINE 50 MG/ML SDV IVPUSH ONE (07:33)
[2024-02-26] MEDS: Albuterol/Ipratropium 3.0-0.5 MG/3 ML Neb Soln ONE (07:34)
[2024-02-26] MEDS: Sodium Chloride 0.9% 1,000 ML IV ONE ×3 (07:47→08:25)
[2024-02-26] MEDS: Azithromycin 500 MG in Sodium Chloride 0.9% 250 ML IV ONE (07:49)
[2024-02-26] MEDS: Magnesium Sulfate/Water 2 GM in Premix Bag 1 BAG IV ONE ×2 (07:49→08:02)
[2024-02-26] MEDS: Sodium Chloride 0.9% 10 ML Syringe FLUSH PRN (07:50)
[2024-02-26 08:19] LABS: APPEARANCE,URINE CLEAR (CLEAR); BILIRUBIN,URINE NEGATIVE (NEGATIVE); COLOR,URINE YELLOW (YELLOW); GLUCOSE,URINE NEGATIVE (NEGATIVE); KETONES,URINE NEGATIVE (NEGATIVE); LEUKOCYTE ESTERASE,URINE NEGATIVE (NEGATIVE); NITRITE,URINE NEGATIVE (NEGATIVE); OCCULT BLOOD,URINE NEGATIVE (NEGATIVE); PROTEIN,URINE NEGATIVE (NEGATIVE); UROBILINOGEN,URINE 0.2 mg/dL (0.2-1.0)
[2024-02-26] MEDS ORDERED: Furosemide 40 MG Tab PO PRN (10:10)
[2024-02-26] MEDS ORDERED: Albuterol 6.7 GM Inhaler INH PRN (10:10)
[2024-02-26] MEDS ORDERED: Ibuprofen 200 MG Tab PO PRN (10:10)
[2024-02-26] MEDS ORDERED: Albuterol 0.083% 2.5 MG/3 ML Neb Soln NEB PRN (10:29)
[2024-02-26] MEDS ORDERED: Docusate Sodium 100 MG Cap PO PRN (10:29)
[2024-02-26] MEDS ORDERED: Bisacodyl 5 MG Tab PO PRN (10:29)
[2024-02-26] MEDS ORDERED: Ondansetron 4 MG/2 ML SDV IVPUSH PRN (10:29)
[2024-02-26] MEDS ORDERED: Melatonin 3 MG Tab PO PRN (10:34)
[2024-02-26] MEDS: Acetaminophen 325 MG Tab PO PRN (11:00)
[2024-02-26] MEDS: methylPREDNISolone Sodium Succinate 40 MG/1 ML SDV IVPUSH SCH (11:29)
[2024-02-26] MEDS: Levofloxacin/Dextrose 5%-Water 750 MG in Premix Bag 1 BAG IV SCH (11:31)
[2024-02-26] MEDS: Albuterol 0.083% 2.5 MG/3 ML Neb Soln INH PRN (13:24)
[2024-02-26] MEDS: Check Patch TRDERM SCH (20:43)
[2024-02-26] MEDS: Formoterol/Mometasone 200-5 MCG 8.8 GM Inhaler IH SCH (20:43)
[2024-02-27 06:15] LABS: BASOPHILS PERCENT AUTO 0.2 % (0.0-1.0); HEMATOCRIT 40.5 % (40.0-54.0); HEMOGLOBIN 13.6 g/dL (14.0-18.0); LYMPHOCYTES PERCENT AUTO 3.8 % (20.5-50.1); MEAN CORPUSCULAR HEMOGLOBIN 29.1 pg (27.0-34.0); MEAN CORPUSCULAR HGB CONC 33.6 g/dL (33.0-35.0); MEAN CORPUSCULAR VOLUME 86.5 fL (80-100); MONOCYTES PERCENT AUTO 2.6 % (2-8); NEUTROPHILS PERCENT AUTO 93.4 % (42.2-75.2); PLATELET COUNT,PLT 82 10^3/uL (150-450); RED BLOOD CELL COUNT 4.68 10^6/uL (4.6-6.2); WHITE BLOOD CELL COUNT,WBC 5.3 10^3/uL (5.0-10.0)
[2024-02-27 06:39] LABS: ANION GAP 11.9 mEq/L (7-13); CREATININE 0.88 mg/dL (0.70-1.30); EST CRCL DRUG DOSING (CG) 92.17 mL/min; POTASSIUM,K 3.9 mmol/L (3.5-5.1)
[2024-02-27] MEDS: Albuterol/Ipratropium 3.0-0.5 MG/3 ML Neb Soln NEB PRN (06:43)
[2024-02-27 07:35] VITALS: BP 134/91; PULSE 92
[2024-02-27] MEDS: atorvaSTATin 10 MG Tab PO SCH (08:39)
[2024-02-27] MEDS: Folic Acid 1 MG Tab PO SCH (08:40)
[2024-02-27] MEDS: FLUoxetine 10 MG Cap PO SCH (08:40)
[2024-02-27] MEDS: Aspirin 81 MG Tab.EC PO SCH (08:40)
[2024-02-27] MEDS: Losartan 50 MG Tab PO SCH (08:41)
[2024-02-27] MEDS: Omeprazole 20 MG Cap.CR PO SCH (08:41)
[2024-02-27] MEDS: Cholecalciferol (Vitamin D3) 25 MCG Tab PO SCH (08:41)
[2024-02-27] MEDS: Potassium Chloride 10 MEQ Tab.ER PO SCH (08:41)
[2024-02-27] MEDS: Enoxaparin 40 MG/0.4 ML Syringe SUBCUT SCH (08:41)
[2024-02-27] MEDS: Loratadine 10 MG Tab PO SCH (08:41)
[2024-02-27] MEDS: Nicotine 7 MG/24 Hr Patch TRDERM SCH (08:43)
[2024-02-27] MEDS: Fluticasone NASAL Spray 16 GM Bottle NAS SCH (08:43)
[2024-02-27] MEDS ORDERED: Tiotropium Bromide 4 GM Inhalation Spray (2.5mcg/1 dose; 10 doses) INH SCH (08:45)
[2024-02-27] MEDS: Tiotropium Bromide 4 GM Inhalation Spray (2.5mcg/1 dose; 10 doses) INH SCH (08:49)
[2024-02-27] MEDS: amLODIPine 5 MG Tab PO SCH (08:50)
[2024-02-27] MEDS: ALPRAZolam 0.5 MG Tab PO PRN (08:50)
[2024-02-27] MEDS ORDERED: Budesonide 0.5 MG/2 ML Neb Susp NEB SCH (18:00)
== END 2024-02-27 11:00 | disposition home or self-care (01) | DRG 193 ==
LOC: DL.ED 06:29 → DL.MS 08:08
PROVIDERS: ADMIT Internal Medicine; ATTEND Internal Medicine
DX: A41.9 Sepsis, unspecified organism (principal); R65.20 Severe sepsis without septic shock; J18.9 Pneumonia, unspecified organism; J96.01 Acute respiratory failure with hypoxia; J96.21 Acute and chronic respiratory failure with hypoxia; F41.0 Panic disorder [episodic paroxysmal anxiety]; J44.1 Chronic obstructive pulmonary disease with (acute) exacerbation; F17.210 Nicotine dependence, cigarettes, uncomplicated; Z88.5 Allergy status to narcotic agent; E83.42 Hypomagnesemia; I10 Essential (primary) hypertension; Z79.82 Long term (current) use of aspirin; Z96.619 Presence of unspecified artificial shoulder joint; K21.9 Gastro-esophageal reflux disease without esophagitis; Z88.0 Allergy status to penicillin; Z88.8 Allergy status to other drugs, medicaments and biological substances; Z79.899 Other long term (current) drug therapy
CPT/HCPCS: 0241U; 36415; 71045; 80048; 80053; 80307; 81003; 83605; 83735; 83880; 84484; 85025; 85379; 85610; 85730; 86140; 87040; 93005; 93010; 94640; 94664; 96365; 96375; 96376; 99223; 99238; 99285; A9270-GY; J0456; J0692; J1200; J1650; J1956; J2920; J2930; J3370; J3475; J3490; J7030; J7050; J7613-GY; J7620-GY

== ENCOUNTER 2025-05-28 17:42 | Inpatient (IN) | payer MEDICARE, OTHER ==
[~2025-05-28 17:42] MED LIST: Sodium Chloride 0.9% 10 ML Syringe FLUSH PRN
[2025-05-28 17:45] LABS: BASOPHILS PERCENT AUTO 0.2 % (0.0-1.0); EOSINOPHILS PERCENT AUTO 0.1 % (1.0-3.0); LYMPHOCYTES PERCENT AUTO 4.1 % (20.5-50.1); MONOCYTES PERCENT AUTO 6.4 % (2-8); NEUTROPHILS PERCENT AUTO 89.2 % (42.2-75.2); PLATELET COUNT,PLT 208 10^3/uL (150-450); RED BLOOD CELL COUNT 5.79 10^6/uL (4.6-6.2); WHITE BLOOD CELL COUNT,WBC 22.1 10^3/uL (5.0-10.0)
[2025-05-28] MEDS: Albuterol 0.083% 2.5 MG/3 ML Neb Soln NEB ONE ×2 (17:47→23:25)
[2025-05-28 18:07] LABS: A/G RATIO 1.5; ALANINE AMINOTRANSFERASE,ALT 28 U/L (16-63); ASPARTATE AMNIOTRANSFERASE,AST 21 U/L (15-37); BILIRUBIN TOTAL 1.3 mg/dL (0.2-1.0); BLOOD UREA NITROGEN,BUN 17 mg/dL (7-18); CARBON DIOXIDE,CO2 28 mmol/L (21-32); CHLORIDE,CL 98 mmol/L (98-107); CREATININE 0.87 mg/dL (0.70-1.30); GLUCOSE RANDOM 102 mg/dL (70-99); POTASSIUM,K 3.8 mmol/L (3.5-5.1); PROTEIN TOTAL,TP 8.0 g/dL (6.4-8.2); SODIUM,NA 137 mmol/L (136-145)
[2025-05-28 18:08] LABS: ESTIMATED GFR 98 mL/min (>=60)
[2025-05-28] MEDS: Ketorolac 30 MG/ML SDV IVPUSH ONE (18:09)
[2025-05-28 18:12] LABS: LACTIC ACID 2.1 mmol/L (0.4-2.0)
[2025-05-28] MEDS: Magnesium Sulfate 2 GM/50 mL 2 GM in Premix Bag 1 BAG IV ONE (18:19)
[2025-05-28] MEDS: Dexamethasone 4 MG/ML SDV IVPUSH ONE (18:19)
[2025-05-28] MEDS ORDERED: Ondansetron 4 MG/2 ML SDV IVPUSH PRN (19:27)
[2025-05-28] MEDS: Iopamidol 755 Mg/ML 100 ML Bottle IVPUSH ONE (20:46)
[2025-05-28] MEDS: LORazepam 2 MG/ML SDV IVPUSH ONE (20:58)
[2025-05-28] MEDS: Lactated Ringers 1,000 ML IV SCH (20:58)
[2025-05-28 21:13] LABS: APPEARANCE,URINE CLEAR (CLEAR); GLUCOSE,URINE NEGATIVE (NEGATIVE); OCCULT BLOOD,URINE TRACE-INTACT (NEGATIVE)
[2025-05-28 21:21] LABS: BASE EXCESS ARTERIAL -5 mmol/L ((-2)-(+3)); BICARBONATE,ARTERIAL 20.1 mmol/L (22-26); O2 DELIVERY DEVICE NASAL CANNULA; O2 SATURATION ARTERIAL 98 % (95-100); PCO2 ARTERIAL 38 mmHg (35-45); PH,ARTERIAL 7.35 (7.35-7.45); PO2 ARTERIAL 99 mmHg (70-100)
[2025-05-28 21:22] LABS: O2 FLOW RATE 3
[2025-05-28 21:27] LABS: EPITHELIAL CELLS,URINE RARE /HPF (NOT SEEN)
[2025-05-28] MEDS: Meropenem 1 GM SDV IVPUSH SCH (21:59)
[2025-05-28] MEDS ORDERED: Meropenem 500 MG SDV IVPUSH SCH (22:00)
[2025-05-28] MEDS: Heparin Sodium 5,000 Units/ML Vial SUBCUT SCH (22:03)
[2025-05-28] MEDS: LORazepam 2 MG/ML SDV ONE (23:15)
[2025-05-29 02:39] LABS: BASOPHILS PERCENT AUTO 0.1 % (0.0-1.0); EOSINOPHILS PERCENT AUTO 0.0 % (1.0-3.0); LYMPHOCYTES PERCENT AUTO 1.3 % (20.5-50.1); MONOCYTES PERCENT AUTO 1.6 % (2-8); NEUTROPHILS PERCENT AUTO 97.0 % (42.2-75.2); PLATELET COUNT,PLT 127 10^3/uL (150-450); RED BLOOD CELL COUNT 4.63 10^6/uL (4.6-6.2); WHITE BLOOD CELL COUNT,WBC 14.2 10^3/uL (5.0-10.0)
[2025-05-29 03:06] LABS: BLOOD UREA NITROGEN,BUN 13.0 mg/dL (7-18); CARBON DIOXIDE,CO2 23.0 mmol/L (21-32); CHLORIDE,CL 102.0 mmol/L (98-107); CREATININE 0.9 mg/dL (0.70-1.30); EST CRCL DRUG DOSING (CG) 89.0 mL/min; ESTIMATED GFR 97.0 mL/min (>=60); GLUCOSE RANDOM 162.0 mg/dL (70-99); PHOSPHORUS 2.9 mg/dL (2.6-4.7); POTASSIUM,K 3.6 mmol/L (3.5-5.1); SODIUM,NA 137.0 mmol/L (136-145)
[2025-05-29 06:31] LABS: O2 DELIVERY DEVICE NASAL CANNULA
[2025-05-29 06:34] LABS: O2 SATURATION ARTERIAL 99 % (95-100); PCO2 ARTERIAL 33 mmHg (35-45); PH,ARTERIAL 7.38 (7.35-7.45); PO2 ARTERIAL 107 mmHg (70-100)
[2025-05-29 06:35] LABS: BASE EXCESS ARTERIAL -5 mmol/L ((-2)-(+3)); BICARBONATE,ARTERIAL 19.1 mmol/L (22-26)
[2025-05-29 06:36] LABS: O2 FLOW RATE 4
[2025-05-29] MEDS: methylPREDNISolone Sodium Succinate 40 MG/1 ML SDV IVPUSH SCH (08:41)
[2025-05-30 06:04] LABS: BASOPHILS PERCENT AUTO 0.1 % (0.0-1.0); EOSINOPHILS PERCENT AUTO 0.0 % (1.0-3.0); LYMPHOCYTES PERCENT AUTO 3.0 % (20.5-50.1); MONOCYTES PERCENT AUTO 3.9 % (2-8); NEUTROPHILS PERCENT AUTO 93.0 % (42.2-75.2); PLATELET COUNT,PLT 141 10^3/uL (150-450); RED BLOOD CELL COUNT 4.45 10^6/uL (4.6-6.2); WHITE BLOOD CELL COUNT,WBC 9.4 10^3/uL (5.0-10.0)
[2025-05-30 06:25] LABS: A/G RATIO 1.22; ALANINE AMINOTRANSFERASE,ALT 23.0 U/L (16-63); ASPARTATE AMNIOTRANSFERASE,AST 15.0 U/L (15-37); BILIRUBIN DIRECT 0.2 mg/dL (0.0-0.2); BILIRUBIN INDIRECT 0.4; BILIRUBIN TOTAL 0.6 mg/dL (0.2-1.0); BLOOD UREA NITROGEN,BUN 10.0 mg/dL (7-18); CARBON DIOXIDE,CO2 29.0 mmol/L (21-32); CHLORIDE,CL 103.0 mmol/L (98-107); CREATININE 0.63 mg/dL (0.70-1.30); EST CRCL DRUG DOSING (CG) 127.14 mL/min; ESTIMATED GFR 108.0 mL/min (>=60); GLUCOSE RANDOM 135.0 mg/dL (70-99); POTASSIUM,K 4.7 mmol/L (3.5-5.1); PROTEIN TOTAL,TP 6.0 g/dL (6.4-8.2); SODIUM,NA 138.0 mmol/L (136-145)
[2025-05-30 06:32] LABS: LACTIC ACID 1.5 mmol/L (0.4-2.0)
[2025-05-31 06:11] LABS: BASOPHILS PERCENT AUTO 0.1 % (0.0-1.0); EOSINOPHILS PERCENT AUTO 0.0 % (1.0-3.0); LYMPHOCYTES PERCENT AUTO 8.5 % (20.5-50.1); MONOCYTES PERCENT AUTO 4.6 % (2-8); NEUTROPHILS PERCENT AUTO 86.8 % (42.2-75.2); PLATELET COUNT,PLT 131 10^3/uL (150-450); RED BLOOD CELL COUNT 4.63 10^6/uL (4.6-6.2); WHITE BLOOD CELL COUNT,WBC 7.9 10^3/uL (5.0-10.0)
[2025-05-31 06:21] LABS: BLOOD UREA NITROGEN,BUN 13.0 mg/dL (7-18); CARBON DIOXIDE,CO2 33.0 mmol/L (21-32); CHLORIDE,CL 100.0 mmol/L (98-107); CREATININE 0.58 mg/dL (0.70-1.30); EST CRCL DRUG DOSING (CG) 138.1 mL/min; GLUCOSE RANDOM 108.0 mg/dL (70-99); POTASSIUM,K 4.4 mmol/L (3.5-5.1); SODIUM,NA 138.0 mmol/L (136-145)
[2025-05-31 06:29] LABS: ESTIMATED GFR 111.0 mL/min (>=60)
[2025-05-31 07:10] VITALS: PULSE 75
[2025-05-31 11:12] VITALS: BP 117/89
[2025-06-02 05:46] LABS: MYCOPLASMA IGM 0.52 U/L (<=0.76)
== END 2025-05-31 12:18 | disposition home or self-care (01) | DRG 189 ==
LOC: DL.ED 17:42 → DL.MS 18:55
PROVIDERS: ADMIT Internal Medicine; ATTEND Internal Medicine
PROC: 5A09357 Assistance with Respiratory Ventilation, Less than 24 Consecutive Hours, Continuous Positive Airway Pressure (ICD-10-PCS; principal; 2025-05-28)
PROC: 4A133R1 Monitoring of Arterial Saturation, Peripheral, Percutaneous Approach (ICD-10-PCS; principal; 2025-05-28)
DX: A41.9 Sepsis, unspecified organism (principal); J18.9 Pneumonia, unspecified organism; J96.01 Acute respiratory failure with hypoxia; J44.9 Chronic obstructive pulmonary disease, unspecified; J44.1 Chronic obstructive pulmonary disease with (acute) exacerbation; H54.7 Unspecified visual loss; Z79.1 Long term (current) use of non-steroidal anti-inflammatories (NSAID); I10 Essential (primary) hypertension; Z88.5 Allergy status to narcotic agent; K21.9 Gastro-esophageal reflux disease without esophagitis; F32.A Depression, unspecified; E83.42 Hypomagnesemia; F41.9 Anxiety disorder, unspecified; F41.0 Panic disorder [episodic paroxysmal anxiety]; E78.5 Hyperlipidemia, unspecified; E53.8 Deficiency of other specified B group vitamins; Z98.890 Other specified postprocedural states; Z96.619 Presence of unspecified artificial shoulder joint; Z79.82 Long term (current) use of aspirin; Z79.52 Long term (current) use of systemic steroids; Z87.891 Personal history of nicotine dependence; Z79.899 Other long term (current) drug therapy; Z88.8 Allergy status to other drugs, medicaments and biological substances; Z88.0 Allergy status to penicillin
CPT/HCPCS: 36415; 71045; 80053; 83605; 83735; 85025; 86140; 87040 ×2; 96365; 96368; 96375; 96376; 99285; A9270 ×2; J1100; J1885; J2543; J3373; J3475 ×2; J7030; J7040; 36600; 71275; 80048; 80076; 81001; 82803; 83036; 84100; 84145; 86738; 87899; 94640; 94660; 97161-GP; 97165-GO; 99233; 99239; J1644; J2060; J2185; J2919; J7120; J7512; Q9967; U0002